=== PATIENT | female | born 1970 | race Caucasian/White ===

== ENCOUNTER 2019-02-13 03:07 | Emergency (ER) | payer OTHER ==
[~2019-02-13] VITALS: Ht 160 cm; Wt 70.3 kg
[~2019-02-13 03:07] MED LIST: ANUSOL-HC30 GM RC; AUGMENTIN 875-1 EACH PO; CEPHALEXIN 500500 M3 PO; FLEXERIL; FLEXERIL PO; IBUPROFEN 800800 M1 PO; LORTABELXR PO; NEO-BACIT-POLY3.5 GM OP; NORCO 5-325 TA1 EACH PO; PROTONIX40 M2 PO; ULTRAM 50MG TAB50 MG PO; XANAX 0.5 MG0.5 MG PO; ZOLOFT100 MG PO; ZOLOFT25 MG; ZPAK PO
[2019-02-13 03:11] VITALS: BP 177/83
[2019-02-13] MEDS ORDERED: TYLENOL EXTRA500 MG PO (03:20)
== END 2019-02-13 03:59 | disposition home or self-care (01) ==
LOC: M.ERS 03:07
DX: R22.0 Localized swelling, mass and lump, head (principal); K21.9 Gastro-esophageal reflux disease without esophagitis; Z87.891 Personal history of nicotine dependence